=== PATIENT | female | born 1990 | race Caucasian/White ===

== ENCOUNTER 2017-10-04 11:54 | Emergency (ER) | payer BC, OTHER ==
[~2017-10-04 11:54] MED LIST: FISH300C2 PO; OXYC-360 PO; PREN0.01 PO
[2017-10-04 12:02] VITALS: BP 114/61; PULSE 86; RESP 20; TEMP 98.7; O2SAT 100
[2017-10-04] MEDS ORDERED: TRAM50TA PO (12:13)
[2017-10-04] MEDS ORDERED: LOSA25TA PO (12:13)
--- NOTE | 2017-10-04 12:14 | PD ---
HPI Chief Complaint: Complaint Time Seen by Provider: 12:06 Travel History International Travel<30 days: No Contact w/Intl Traveler<30days: No Traveled to known affect area: No History of Present Illness HPI The patient is a 27-year-old female who presents to the emergency department for left flank pain, dysuria, frequency, urgency, and hematuria 4 days duration. The patient states her symptoms started 4 days ago with dysuria , suprapubic discomfort, frequency, and urgency. She now complains of left mid back pain and left flank pain as well as suprapubic tenderness. She denies any vaginal discharge or vaginal bleeding. The patient's last menstrual cycle was September 27, 2017, she is unsure of current status as she is no longer taking control. She does complain of mild nausea without any vomiting. She has been taking [id number]-afrosol Azo and drinking cranberry juice with mild alleviation of her symptoms. She does have a history of previous bladder infections with similar symptoms. The patient denies any fever , chills, or sweats. Symptoms are mild, similar to previous bladder infections , slightly alleviated with cranberry juice and [id number] Azo. PFSH Past Medical History Diminished Hearing: No LMP: 11 26 17 : 1 Para: 0 Miscarriage: 0 : 0 Social History Alcohol Use: No Tobacco Use: No Substance Use: No Allergies-Medications (Allergen,Severity, Reaction): Coded Allergies: No Known Allergies (Verified , 05/12/08) Reported Meds & Prescriptions Reported Meds & Active Scripts Active Reported Tramadol (Tramadol HCl) 50 Mg Tab 50 Mg PO Q4H PRN Losartan (Losartan Potassium) 25 Mg Tab 12.5 Mg PO DAILY Review of Systems Except as stated in HPI: all other systems reviewed are Neg General / Constitutional: No: Fever, Chills Gastrointestinal: Positive: Nausea, No: Vomiting, Abdominal Pain Genitourinary: Positive: Urgency, Frequency, Dysuria, Hematuria, Pelvic Pain ( suprapubic discomfort), Flank Pain, No: Discharge, Vaginal Bleeding Physical Exam Narrative GENERAL: Awake, alert, pleasant 27-year-old female who appears her stated age and is in no acute respiratory distress. SKIN: Focused skin assessment warm/dry. HEAD: Atraumatic. Normocephalic. EYES: Pupils equal and round. No scleral icterus. No injection or drainage. ENT: No nasal bleeding or discharge. Mucous membranes pink and moist. NECK: Trachea midline. No JVD. GASTROINTESTINAL: Abdomen soft, mild suprapubic tenderness, no rebound tenderness, guarding, rigidity. Back: Left CVA tenderness. MUSCULOSKELETAL: No obvious deformities. No clubbing. No cyanosis. No edema. NEUROLOGICAL: Awake and alert. No obvious cranial nerve deficits. Motor grossly within normal limits. Normal speech. PSYCHIATRIC: Appropriate mood and affect; insight and judgment normal. Data Data Last Documented VS Vital Signs Date Time Temp Pulse Resp B/P (MAP) Pulse Ox O2 Delivery O2 Flow Rate FiO2 10/04/17 12:02 98.7 86 20 114/61 (78) 100 Orders Orders Urinalysis - C+S If Indicated (10/04/17 12:10) Ed Urine Pregnancytest Poc (10/04/17 12:10) Urine Culture (10/04/17 12:20) Labs Laboratory Tests Test 10/04/17 12:20 Urine Collection Type CLEAN CATCH Urine Color YELLOW Urine Turbidity CLEAR Urine pH 7.5 Urine Specific [place] 1.004 Urine Protein NEG mg/dL Urine Glucose (UA) NEG mg/dL Urine Ketones NEG mg/dL Urine Occult Blood LARGE Urine Nitrite NEG Urine Bilirubin NEG Urine Leukocyte Esterase MOD Urine RBC 10-14 /hpf Urine WBC 25-49 /hpf Urine WBC Clumps MOD Urine Squamous Epithelial Cells 0-5 /hpf Microscopic Urinalysis Comment CULTURE INDICATED Urine Collection Time 12:20 [facility] Medical Decision Making Medical Screen Exam Complete: Yes Emergency Medical Condition: Yes Medical Record Reviewed: Yes Differential Diagnosis Differential diagnosis includes UTI, pyelonephritis, nephrolithiasis, ectopic , normal , diverticulitis, ovarian cyst, ovarian torsion. Narrative Course Bedside UA test was obtained and UA was sent to lab. UA test was negative. UA is positive for WBCs, RBCs, bacteria, and leukocyte esterase. The patient will be treated with Bactrim and pyridium. A culture has been sent to lab. The patient is advised to follow-up with her primary physician. Return if symptoms worsen or progress. Diagnosis Primary Impression: Pyelonephritis Patient Instructions: General Instructions Additional Instructions: Medications as directed. Please provide the patient a copy of her UA results at discharge. Follow-up with your primary physician. Return if symptoms worsen or progress. Med/Other Pt SpecificInfo: Prescription(s) given Scripts Phenazopyridine (Pyridium) 100 Mg Tab 100 MG PO Q8H Y for DYSURIA for 2 Days, #6 TAB 0 Refills Prov: Gregg Quiroz MD 10/04/17 Sulfamethoxazole-Trimethoprim (Bactrim DS) 800-160 Mg Tab 1 TAB PO BID for Infection, #20 TAB 0 Refills Prov: Gregg Quiroz MD 10/04/17 Disposition: 01 DISCHARGE HOME Condition: Stable Gregg Quiroz MD Oct 04, 2017 12:14
[2017-10-04 12:23] LABS: BLOOD, URINE LARGE (NEG); GLUCOSE,URINE NEG (NEG); KETONE, URINE NEG (NEG); NITRITE,URINE NEG (NEG); PH, URINE 7.5 (5.0-8.5)
[2017-10-04 12:27] LABS: METHOD OF COLLECTION CLEAN CATCH; URINE COLOR YELLOW (YELLW/STRAW)
[2017-10-04 12:28] LABS: COMMENT (UR) CULTURE INDICATED; CULTURE IF INDICATED CULTURE INDICATED; SQUAMOUS EPITHELIAL CELL URINE 0-5 /hpf (0-5)
[2017-10-04] MEDS ORDERED: PHEN0.4T PO (12:32)
[2017-10-04] MEDS ORDERED: BACT800T5 PO (12:32)
== END 2017-10-04 12:55 | disposition home or self-care (01) ==
LOC: PHED 11:54
DX: N12 Tubulo-interstitial nephritis, not specified as acute or chronic (principal); Z79.899 Other long term (current) drug therapy
CPT/HCPCS: 81001; 84703; 87086; 99284